=== PATIENT | female | born 1985 | race Hispanic/Latino ===

== ENCOUNTER 2016-12-28 15:36 | Emergency (ER) | payer MEDICAID ==
[2016-12-28 15:36] VITALS: BMI 26.1
[2016-12-28 15:41] VITALS: BP 117/66; PULSE 74; RESP 16; TEMP 98.7; O2SAT 100
--- NOTE | 2016-12-28 16:32 | ED PDOC ---
HPI: Abdomen Time Seen by Provider: 12/28/16 15:48 Chief Complaint (Nursing): Abdominal Pain Chief Complaint (Provider): Abdominal Pain History Per: Patient History/Exam Limitations: no limitations Onset/Duration Of Symptoms: Days (2x) Severity: Moderate Location Of Pain/Discomfort: Epigastric Associated Symptoms: Back Pain. denies: Fever, Nausea, Vomiting, Diarrhea, Urinary Symptoms Additional Complaint(s): 31 year old female patient approximately 10x weeks presents to the ED with complaints of epigastric abdominal pain that radiates to her back that started 2x days ago. She denies having nausea, vomiting, diarrhea, urinary symptoms, and vaginal bleeding. PMD: Mark Urban MD Past Medical History Reviewed: Historical Data, Nursing Documentation, Vital Signs Vital Signs: Last Vital Signs Temp 98.7 F 12/28/16 15:38 Pulse 74 12/28/16 15:38 Resp 16 12/28/16 15:38 BP 117/66 12/28/16 15:38 Pulse Ox 100 12/28/16 16:38 - Medical History PMH: Depression Other PMH: hydrocephalus - Surgical History Other surgeries: ARCHITECT IN TRAINING shunt 2013 - Family History Family History: States: Unknown Family Hx - Social History Current smoker - smoking cessation education provided: No Alcohol: None Drugs: Denies - Immunization History Hx Tetanus Toxoid Vaccination: No Hx Influenza Vaccination: No Hx Pneumococcal Vaccination: No - Home Medications Home Medications: Ambulatory Orders Medication Instructions Recorded Acetaminophen [Tylenol] 650 mg PO Q4 #30 tab 09/08/15 Famotidine [Pepcid] 1 tab PO BID #14 tab 09/08/15 Ondansetron ODT [Zofran ODT] 4 mg PO Q8 #12 odt 09/08/15 Clindamycin [Cleocin] 300 mg PO TID #21 cap 10/03/15 Naproxen [Naprosyn] 1 tab PO BID PRN #60 tab 10/03/15 Famotidine [Pepcid] 20 mg PO Q12 #20 tab 12/28/16 - Allergies Allergies/Adverse Reactions: Allergies Allergy/AdvReac Type Severity Reaction Status Date / Time Penicillins Allergy RASH Verified 12/28/16 15:37 seafood Allergy RASH Uncoded 12/28/16 15:37 Review of Systems ROS Statement: Except As Marked, All Systems Reviewed And Found Negative Constitutional: Negative for: Fever Gastrointestinal: Positive for: Abdominal Pain (epigastric abdominal pain). Negative for: Nausea, Vomiting, Diarrhea Genitourinary Female: Negative for: Dysuria, Hematuria, Vaginal Bleeding Physical Exam - Reviewed Nursing Documentation Reviewed: Yes Vital Signs Reviewed: Yes - Physical Exam Appears: Positive for: Well, Non-toxic, No Acute Distress Head Exam: Positive for: ATRAUMATIC, NORMOCEPHALIC Skin: Positive for: Normal Color, Warm, Dry Cardiovascular/Chest: Positive for: Regular Rate, Rhythm Respiratory: Positive for: Normal Breath Sounds. Negative for: Respiratory Distress Gastrointestinal/Abdominal: Positive for: Soft, Tenderness (mild epigastric tenderness, lower abdominal tenderness) Back: Positive for: Normal Inspection. Negative for: L CVA Tenderness, R CVA Tenderness Neurologic/Psych: Positive for: Alert, Oriented (3x) - Laboratory Results Result Diagrams: 12/28/16 17:05 12/28/16 17:05 - ECG O2 Sat by Pulse Oximetry: 100 (RA) Pulse Ox Interpretation: Normal Medical Decision Making Medical Decision Makin:48 Initial impression: 31 year old female 10x weeks with epigastric pain. Initial plan: * beta HCG quantitative * CMP * udip * CBC * US transvaginal * reevaluation Scribe Attestation: Documented by Rochelle Krause, acting as a scribe for Reinier Bowers MD. Provider Scribe Attestation: All medical record entries made by the Scribe were at my direction and personally dictated by me. I have reviewed the chart and agree that the record accurately reflects my personal performance of the history, physical exam, medical decision making, and the department course for this patient. I have also personally directed, reviewed, and agree with the discharge instructions and disposition. Disposition - Clinical Impression Clinical Impression: Gastritis - Patient ED Disposition Is Patient to be Admitted: No Counseled Patient/Family Regarding: Studies Performed, Diagnosis, Need For Followup, Rx Given - Disposition [facility] Disposition: Routine/Home Disposition Time: 18:58 Condition: FAIR Prescriptions: Famotidine [Pepcid] 20 mg PO Q12 #20 tab Instructions: Gastritis (ED)
[2016-12-28 17:13] LABS: BASO % 0.4 % (0.0-2.0); EOS % 0.7 % (0.0-4.0); HEMATOCRIT 35.9 % (34.0-47.0); LYMPH # 1.7 K/uL (1.0-4.3); LYMPH % 27.7 % (20.0-40.0); MEAN CELL VOLUME 89.9 fl (81.0-99.0); MEAN CORPUSCULAR HEMOGLOBIN 29.9 pg (27.0-31.0); MEAN CORPUSCULAR HGB CONC 33.3 g/dL (33.0-37.0); MEAN PLATELET VOLUME 8.1 fl (7.2-11.7); MONO # 0.7 K/uL (0.0-0.8); MONO % 11.1 % (0.0-10.0); NEUT # 3.7 K/uL (1.8-7.0); NEUT % 60.1 % (50.0-75.0); RED CELL DISTRIBUTION WIDTH 13.8 % (11.5-14.5); WHITE BLOOD COUNT 6.1 K/uL (4.8-10.8)
--- NOTE | 2016-12-28 17:20 | US ---
PROCEDURE: HISTORY: abd pain 10 weeks preg COMPARISON: TECHNIQUE: FINDINGS: The uterus measures 11.4 x 6.7 x 7.8 centimeters. There is intrauterine fetus with a crown-rump length of 3.2 centimeters corresponding to 10 weeks gestation. heart motion is identified at 171 beats per minute. The right ovary is not identified. The left ovary is unremarkable. IMPRESSION: Single live intrauterine fetus with a mean gestational age of 10 weeks and 1 day based on the crown-rump length. Recommend anatomic survey in the 2nd trimester.
[2016-12-28 17:28] LABS: ALB/GLOB RATIO 1.2 (1.0-2.1); ALKALINE PHOSPHATASE 47 U/L (38-126); ALT/SGPT 25 U/L (9-52); AST/SGOT 15 U/L (14-36); BILIRUBIN,TOTAL 0.2 mg/dl (0.2-1.3); BLOOD UREA NITROGEN 8 mg/dl (7-17); CALCIUM 9.2 mg/dL (8.4-10.2); CARBON DIOXIDE 21 mmol/L (22-30); CHLORIDE 106 mmol/L (98-107); GFR AFRICAN-AMERICAN > 60; GLUCOSE,RANDOM 68 mg/dL (65-105); POTASSIUM 3.8 MMOL/L (3.6-5.0); SODIUM 138 mmol/l (132-148); TOTAL PROTEIN 7.2 G/DL (6.3-8.2)
== END 2016-12-28 19:15 | disposition home or self-care (01) ==
LOC: H.ER 15:36
DX: R10.13 Epigastric pain (principal); O26.891 Other specified pregnancy related conditions, first trimester; Z3A.10 10 weeks gestation of pregnancy; F32.9 Major depressive disorder, single episode, unspecified; K29.70 Gastritis, unspecified, without bleeding; Z88.0 Allergy status to penicillin

== ENCOUNTER 2017-03-05 12:31 | Emergency (ER) | payer MEDICAID ==
[2017-03-05 12:31] VITALS: BMI 26.1
[2017-03-05 12:34] VITALS: BP 108/64; PULSE 88; RESP 18; TEMP 99; O2SAT 100
--- NOTE | 2017-03-05 13:29 | ED PDOC ---
HPI: General Adult Time Seen by Provider: 03/05/17 12:46 Chief Complaint (Nursing): Cough, Cold, Congestion Chief Complaint (Provider): Cough History Per: Patient History/Exam Limitations: no limitations Onset/Duration Of Symptoms: Days (x 1 week) Current Symptoms Are (Timing): Still Present Additional Complaint(s): Buzz is a 31 y/o female who states for the past week having a dry cough associated with sore throat. Patient states she is currently 4 months . LMP was October 19. Today she experienced chest pain while coughing, which resolved after coughing was done. Denies fever, hemoptysis, shortness of breath , leg pain, abdominal pain, pelvic pain, and vaginal bleeding. PMD: Unknown Past Medical History Reviewed: Historical Data, Nursing Documentation, Vital Signs Vital Signs: Last Vital Signs Temp 99 F 03/05/17 12:32 Pulse 88 03/05/17 12:32 Resp 18 03/05/17 12:32 BP 108/64 03/05/17 12:32 Pulse Ox 100 03/05/17 14:33 - Medical History PMH: Depression - Family History Family History: States: Unknown Family Hx - Immunization History Hx Tetanus Toxoid Vaccination: No Hx Influenza Vaccination: No Hx Pneumococcal Vaccination: No - Home Medications Home Medications: Ambulatory Orders Medication Instructions Recorded Acetaminophen [Tylenol] 650 mg PO Q4 #30 tab 09/08/15 Famotidine [Pepcid] 1 tab PO BID #14 tab 09/08/15 Ondansetron ODT [Zofran ODT] 4 mg PO Q8 #12 odt 09/08/15 Clindamycin [Cleocin] 300 mg PO TID #21 cap 10/03/15 Naproxen [Naprosyn] 1 tab PO BID PRN #60 tab 10/03/15 Famotidine [Pepcid] 20 mg PO Q12 #20 tab 12/28/16 - Allergies Allergies/Adverse Reactions: Allergies Allergy/AdvReac Type Severity Reaction Status Date / Time Penicillins Allergy RASH Verified 12/28/16 15:37 seafood Allergy RASH Uncoded 12/28/16 15:37 Review of Systems ROS Statement: Except As Marked, All Systems Reviewed And Found Negative Constitutional: Negative for: Fever ENT: Positive for: Throat Pain Cardiovascular: Positive for: Chest Pain (while coughing) Respiratory: Positive for: Cough (dry). Negative for: Shortness of Breath, Hemoptysis Gastrointestinal: Negative for: Abdominal Pain Genitourinary Female: Negative for: Vaginal Bleeding, Pelvic Pain Musculoskeletal: Negative for: Leg Pain Physical Exam - Reviewed Nursing Documentation Reviewed: Yes Vital Signs Reviewed: Yes - Physical Exam Appears: Positive for: Well, Non-toxic, No Acute Distress Head Exam: Positive for: ATRAUMATIC, NORMAL INSPECTION, NORMOCEPHALIC Skin: Positive for: Normal Color, Warm, Dry Eye Exam: Positive for: EOMI, Normal appearance, PERRL ENT: Positive for: Pharyngeal Erythema Neck: Positive for: Normal, Painless ROM, Supple Cardiovascular/Chest: Positive for: Regular Rate, Rhythm. Negative for: Murmur Respiratory: Positive for: Normal Breath Sounds (lungs clear bilaterally). Negative for: Respiratory Distress Gastrointestinal/Abdominal: Positive for: Normal Exam, Soft. Negative for: Tenderness Back: Positive for: Normal Inspection. Negative for: Vertebral Tenderness Extremity: Positive for: Normal ROM, Capillary Refill (< 2 sec). Negative for: Pedal Edema, Deformity Neurologic/Psych: Positive for: Alert, Oriented. Negative for: Motor/Sensory Deficits - ECG O2 Sat by Pulse Oximetry: 100 (RA) Pulse Ox Interpretation: Normal - Progress ED Course And Treament: Rapid strep: negative Medical Decision Making Medical Decision Making: Time: 13:20 Initial Plan: --Pending rapid strep test and throat culture --Group A Beta Strep antigen negative Time: 14:32 Clinical Impression: URI Upon provider evaluation patient is medically stable, and requires no further treatment in the ED at this time. Patient will be discharged home with instructions to stay hydrated and take Tylenol PRN. Counseling was provided and all questions were answered regarding diagnosis and need for follow up with OBGYN in 2 days. There is agreement to discharge plan. Return if symptoms persist or worsen. Scribe Attestation: Documented by Margie Moi, acting as a scribe for Ankit Castañeda PA-C. Provider Scribe Attestation: All medical record entries made by the Scribe were at my direction and personally dictated by me. I have reviewed the chart and agree that the record accurately reflects my personal performance of the history, physical exam, medical decision making, and the department course for this patient. I have also personally directed, reviewed, and agree with the discharge instructions and disposition. Disposition - Clinical Impression Clinical Impression: URI (upper respiratory infection) - Patient ED Disposition Is Patient to be Admitted: No Counseled Patient/Family Regarding: Diagnosis, Need For Followup - Disposition Referrals: Mark Urban MD [Primary Care Provider] - Disposition: Routine/Home Disposition Time: 14:32 Condition: STABLE Additional Instructions: Do frequent warm salt water gargles. Take Tylenol at home for pain or fever as needed. Follow up with your OBGYN in 2 days for further evaluation. Instructions: Upper Respiratory Infection (ED) Forms: [facility] (Chinese) Print Language: MONTENEGR[place]
== END 2017-03-05 14:57 | disposition home or self-care (01) ==
LOC: H.ER 12:31
DX: J06.9 Acute upper respiratory infection, unspecified (principal); F32.9 Major depressive disorder, single episode, unspecified; Z88.0 Allergy status to penicillin

== ENCOUNTER 2017-07-18 06:04 | Inpatient (IN) | payer MEDICAID ==
[2017-07-18 08:10] VITALS: BMI 37.4
[2017-07-18 09:03] LABS: HEMATOCRIT 34.4 % (34.0-47.0); MEAN CELL VOLUME 88.1 fl (81.0-99.0); MEAN CORPUSCULAR HEMOGLOBIN 29.2 pg (27.0-31.0); MEAN CORPUSCULAR HGB CONC 33.1 g/dL (33.0-37.0); RED CELL DISTRIBUTION WIDTH 16.3 % (11.5-14.5)
[2017-07-18] MEDS ORDERED: Fentanyl/Bupivacaine HCl 250 ML EPI ONE (09:07)
[2017-07-18] MEDS ORDERED: Oxytocin 30 UNITS in Sodium Chloride 0.9% 500 ML IV ONE (09:09)
[2017-07-18] MEDS ORDERED: Lidocaine 1% Inj (20ml) ONE (09:21)
--- NOTE | 2017-07-18 09:27 | CP.PCM.PN ---
Subjective - Date & Time of Evaluation Date of Evaluation: 07/18/17 Time of Evaluation: 09:25 - Subjective Subjective: Fentanyl/Bupivicaine was taken out to do epidural and bag was spiked but patient delivered before I was able to do epidural within 5 minutes of seeing patient and labs still pending. Full bag was wasted in Pyxis. Objective - Medications Medications: Current Medications Oxytocin 30 units/ Sodium (Chloride) 503 mls @ 999 mls/hr IV .Q31M ONE PRN Reason: Protocol Stop: 07/18/17 09:39 Oxytocin (Pitocin 20 Units In Lr) 1,000 mls @ 125 mls/hr IV .Q8H FLORES PRN Reason: Protocol - Labs Labs: 07/18/17 08:59
[2017-07-18] MEDS ORDERED: Oxycodone/Acetaminophen 5/325 mg Tab PO PRN (09:28)
--- NOTE | 2017-07-18 09:34 | OBDS ---
DELIVERY PERSONNEL Delivery Doctor: Tristen Alexandra MD Director Of Managed Services: Sabina Lux Resident: Rene Pacheco MATERNAL INFORMATION Delivery Anesthesia: Local Medications in Delivery: Pitocin 30 units in 500 ml saline Estimated Blood Loss (ml): 150 Placenta Cultured: No Maternal Complications: None Provider Comments: Pt progressed to complete and pushed to deliver a viable female through th in meconium-stained fluid at 09:14 am. Apgars 9 and 9. Wt 2900 gms, 6#6.3. Infant placed on mother 's abdomen. Cord blood collected. Placenta delivered spontaenously intact w/ a 3vc at 09:16 am. 1 % lidocaine injected into vagina. Small first degree tear repaired w/ 3-0v w/ 2 interrupted stitches . Rectum intact. Pt and baby tolerated the procedure well. EBL 150 mL LABOR SUMMARY EDC: 07/26/2017 00:00 No. Babies in Womb: 1 LABOR INFORMATION Onset of Labor: 07/18/2017 00:00 Complete Dilatation: 07/18/2017 08:30 Group B Beta Strep: Negative Steroids Given: None MEMBRANES Membranes Rupture Method: Spontaneous Rupture of Membranes: 07/18/2017 08:30 Amniotic Fluid Color: Light Meconium Amniotic Fluid Amount: Moderate Amniotic Fluid Odor: None STAGES OF LABOR Stage 1 hrs: 8 Stage 1 min: 30
[2017-07-18] MEDS ORDERED: Benzocaine/Menthol SPRAY TOP PRN (19:33)
[2017-07-19 05:52] LABS: HEMATOCRIT 33.9 % (34.0-47.0); MEAN CELL VOLUME 88.7 fl (81.0-99.0); MEAN CORPUSCULAR HEMOGLOBIN 28.8 pg (27.0-31.0); MEAN CORPUSCULAR HGB CONC 32.4 g/dL (33.0-37.0); RED CELL DISTRIBUTION WIDTH 16.3 % (11.5-14.5); WHITE BLOOD COUNT 9.1 K/uL (4.8-10.8)
--- NOTE | 2017-07-19 15:40 | OBHP ---
Datetime: 07/18/2017 08:15 IP Admit Plan: Admit to unit; Initiate labor protocol Admit Comment, IP Provider: 31 y/o F at 38.6 weeks GA based on LMP 10/19/16, c/w first bindu medina , KAMILA 07/26/17. Pt presented to [facility] c/o lower pelvic pain and blood tinged mucus discharge sin ce 1 am this morning. Denies any ctx at home but in [facility] she reports to have ctx. Denies LOF. Has +FM . Pt is GBS neg. Pt's PNC chart is available and reviewed. Denies headache, blurry vision or dizzines s. PNC: [facility], Dr. Joel Hodges, Last visit: 07/17/17 PNL: GBS neg, HIV neg, RPR neg, HbsAg neg, rubella immune, gc/c neg, A+, ab neg, ppd neg. past obhx: x2 (2001 and 2008), no complications( had 2 w/ V-P shunt in place). Past gynhx: denies hx STI. Pap neg on 12/25/16. Pmhx: hx hydrocephalus (s/p V-P shunt since age 10, last shunt change in 2011), obesity Pshx: V-P shunt social hx: denies smoking, ETOH or recreational drug use family hx: mother: asthma, DMII, HTN. medications: PNV allergies: penicillin: rash, Shellfish: anaphylaxis Assessment: 31 yo IUP @ 38.6 weeks GA, pelvic pain and ctx. Plan: - Change in cevix: from 3 cm dialtion to 4 cm. - Pt entering active phase of labor. - Will admit to L_D. - Initiate labor protocol. Case discussed with Dr Allen, OB rag production worker. Tara PGY-1. OB Hospitalist on-call...With PGY1 I saw and examined this patient. Agree with note MIGDALIA signed out to next hospitalist Membranes, Provider: Intact Comments, ACOG Physical Exam: Cervical change appreciated from 7 am. IP Hx Assessment: The History has been Reviewed and is Current EGA AdmitDate IP: 38.6 IP Chief Complaint: Other NICHD Variability Prov Fetus A: Moderate 6-25bpm FHR Category Provider Fetus A: Category I Dilatation, Provider: 4 Effacement, Provider: 50 Station, Provider: -2 Datetime: 07/18/2017 06:55 IP Adm Impression: Term, intrauterine IP Chief Complaint Other: pelvic pressure and pain IP Adm Impression Other: latent phase of labor Pelvic Type - PN: Adequate Extremities - PN: Normal Abdomen - PN: Normal Back - PN: Normal Lungs - PN: Normal Heart - PN: Normal Thyroid - PN: Normal Neurologic - PN: Normal HEENT - PN: Normal General - PN: Normal Presentation-Admit: Vertex FHR - Baseline A Provider: 130 NICHD Accel Fetus A IP Provider: [id number] NICHD Decel Fetus A IP Provider: None Genitourinary Exam: Normal DTRs - PN: Normal
--- NOTE | 2017-07-20 08:49 | OBPPN ---
Datetime: 07/20/2017 06:19 PP Pain Prov: Within normal limits PP Nausea Prov: Denies PP Flatus Prov: Yes PP BM Prov: No PP Heart Prov: Normal PP Lungs Prov: Normal PP Abdomen/Uterus Prov: Normal PP Lochia Prov: Normal PP Vulva/Perineum Prov: Normal PP CVA Tenderness Prov: Normal PP Extremities Prov: Normal PP Impression Prov: Normal progression PP Plan Prov: Discharge PP Progress Note Prov: PPD #2 31 y/o now seen and examined at bedside this morning. No overnight events noted. Reports mil d pelvic pain and it's controlled with pain medications. Voiding freely w/ no blood noted. Reports pa ssing gas but no BM yet. Tolerating PO. Ambulating well w/o dizziness. Lochia is similar to menses vo lume. Denies nausea, vomiting, fever, chills, chest pain or calf pain. Physical Exam: General: A_O, resting comfortably in bed, NAD HEENT: oral mucosa moist. Lungs: CTA B/L, no wheezing, rhonchi or rales CVS: RRR, S1, S2 ABD: ND, +BS, firm fundus @ umbilical level. Soft, appropriate TTP. EXT: no edema,no calf tenderness. Neuro/psych: AAOX3. Assessment: 31 y/o now doing well on PPD 2 Plan: Discharge to home today PNV 1 PO qdaily Ibuprofen 600 mg 1 tab po q6h prn for moderate/severe pain Feosol 325 mg PO bid Senokot 8.6mg 1-2 tabs po qhs. Encourage . Ambulation with caution,nothing per vaginal, no heavy lifting. Go to ER if excessive bleeding or experiencing fever, increased perineal or abdominal pain, breast problems or leg pain and swelling. Follow up at your clinic in 4-6 weeks. Sultan Stern, PGY1 OB [facility]-call...pt seen on rounds this AM by me. Agree with note MAHNDO Vital Signs Provider PP: Reviewed; Within Normal Limits
--- NOTE | 2017-07-20 08:49 | OBDCSUM ---
Datetime: 07/20/2017 06:21 Discharged to, Provider: Home Follow up at, Provider: [facility] Disch Instr Activity: Normal activity Disch Instr Diet: Regular Discharge Instructions, Provider: Routine instructions given Discharge Diagnosis, Provider: Term Delivered Follow up in weeks, Provider: in 4-6 weeks Disch Referrals: None Contraception discussed, Prov: Yes Disch Activity Restrictions: No lifting; No sexual activity; Nothing in vagina - [place], tampon s, douche Discharge Comment, Provider: Take Ibuprofen 600 mg 1 table every 6 hours as needed for pain. Take th food. Take Feosol 325 mg two times daily. Take vitamin daily. Take Senokot 8.6mg 1-2 tabs at night as needed for constipation. Please follow up with your doctor in 4-6 weeks. [facility]...pt seen on rounds this AM by me. Agree with note MAHNDO Contraception after Delivery: Control Pill/Patch
[2017-07-20 21:42] VITALS: BP 130/77; PULSE 101; RESP 20; TEMP 98.1; O2SAT 98
== END 2017-07-20 15:00 | disposition home or self-care (01) | DRG 373 ==
LOC: H.EROB2 06:04 → H.EROB 06:04 → H.L&D 08:10 → H.EROB2 08:10 → H.OB/GYN 11:30
PROVIDERS: ADMIT Obstetrics & Gynecology; ATTEND Obstetrics & Gynecology
PROC: 10E0XZZ Delivery of Products of Conception, External Approach (ICD-10-PCS; principal; 2017-07-18)
PROC: 4A1HXCZ Monitoring of Products of Conception, Cardiac Rate, External Approach (ICD-10-PCS; 2017-07-18)
PROC: 0HQ9XZZ Repair Perineum Skin, External Approach (ICD-10-PCS; 2017-07-18)
DX: O77.0 Labor and delivery complicated by meconium in amniotic fluid (principal); O70.0 First degree perineal laceration during delivery; Z37.0 Single live birth; Z3A.38 38 weeks gestation of pregnancy; Z82.49 Family history of ischemic heart disease and other diseases of the circulatory system; Z83.3 Family history of diabetes mellitus

== ENCOUNTER 2017-11-13 23:24 | Emergency (ER) | payer MEDICAID ==
[2017-11-13 23:24] VITALS: BMI 37.4
[2017-11-13 23:39] VITALS: RESP 16
--- NOTE | 2017-11-14 01:00 | ED PDOC ---
HPI: CCC, URI, Sore Throat Time Seen by Provider: 11/13/17 23:35 Chief Complaint (Nursing): ENT Problem Chief Complaint (Provider): throat pain History Per: Patient History/Exam Limitations: no limitations Onset/Duration Of Symptoms: Days (4) Current Symptoms Are (Timing): Still Present Location Of Pain: Throat Additional Complaint(s): 32 y/o female brought in by EMS for evaluation of sore throat x 4 days. Denies fever, ear pain, cough, congestion, difficulty speaking/swallowing, chest pain, shortness of breath. Past Medical History Reviewed: Historical Data, Nursing Documentation, Vital Signs Vital Signs: Last Vital Signs Temp 98.4 F 11/13/17 23:35 Pulse 90 11/13/17 23:35 Resp 16 11/13/17 23:35 BP 129/81 11/13/17 23:35 Pulse Ox 98 11/14/17 02:00 - Medical History PMH: No Chronic Diseases Denies: Depression, Diabetes, HTN - Surgical History Other surgeries: [employer] shunt - Family History Family History: States: Unknown Family Hx - Living Arrangements Living Arrangements: With Family - Immunization History Hx Tetanus Toxoid Vaccination: No Hx Influenza Vaccination: No Hx Pneumococcal Vaccination: No - Home Medications Home Medications: Ambulatory Orders Medication Instructions Recorded Ferrous Sulfate [Feosol] 325 mg PO BID #60 tab 07/20/17 Ibuprofen [Motrin Tab] 600 mg PO Q6 PRN #30 tab 07/20/17 Sennosides [Senokot] 8.6 mg PO QPM PRN #60 tablet 07/20/17 - Allergies Allergies/Adverse Reactions: Allergies Allergy/AdvReac Type Severity Reaction Status Date / Time Penicillins Allergy RASH Verified 04/26/17 09:03 seafood Allergy RASH Uncoded 07/18/17 17:27 Review of Systems ROS Statement: Except As Marked, All Systems Reviewed And Found Negative ENT: Positive for: Throat Pain Physical Exam - Reviewed Nursing Documentation Reviewed: Yes Vital Signs Reviewed: Yes - Physical Exam Appears: Positive for: Well, Non-toxic, No Acute Distress Head Exam: Positive for: ATRAUMATIC, NORMAL INSPECTION, NORMOCEPHALIC Skin: Positive for: Normal Color Eye Exam: Positive for: Normal appearance ENT: Positive for: Pharyngeal Erythema Neck: Positive for: Normal, Painless ROM Cardiovascular/Chest: Positive for: Regular Rate, Rhythm Respiratory: Positive for: Normal Breath Sounds Gastrointestinal/Abdominal: Positive for: Normal Exam Back: Positive for: Normal Inspection Extremity: Positive for: Normal ROM Lymphatic: Positive for: Normal Exam Neurologic/Psych: Positive for: Alert, Oriented - ECG O2 Sat by Pulse Oximetry: 98 - Progress ED Course And Treament: ibuprofen PO, rapid strep Patient educated on findings, discharged with instructions to follow up PMD 2-3 days. Advised ibuprofen/Tylenol PRN pain. Fluids. Return precautions given. Disposition - Clinical Impression Clinical Impression: Viral pharyngitis - Patient ED Disposition Is Patient to be Admitted: No Counseled Patient/Family Regarding: Studies Performed, Diagnosis, Need For Followup - Disposition Referrals: Mark Urban MD [Primary Care Provider] - Disposition: Routine/Home Disposition Time: 02:00 Condition: IMPROVED Instructions: Viral Pharyngitis Forms: [facility] (Urdu)
[2017-11-14 02:34] VITALS: BP 121/72; PULSE 71; TEMP 98.2; O2SAT 95
== END 2017-11-14 02:39 | disposition home or self-care (01) ==
LOC: H.ER 23:24
DX: J02.9 Acute pharyngitis, unspecified (principal); Z88.0 Allergy status to penicillin; Z98.2 Presence of cerebrospinal fluid drainage device

== ENCOUNTER 2017-12-28 15:33 | Emergency (ER) | payer MEDICAID ==
[2017-12-28 15:33] VITALS: BMI 37.4
[2017-12-28 15:39] VITALS: TEMP 98.1
[2017-12-28 15:44] VITALS: BP 128/58; PULSE 65; RESP 16; O2SAT 100
[2017-12-28] MEDS ORDERED: Albuterol 0.083% Inhal Sol (2.5 mg/3 mL) UD INH STA (15:48)
[2017-12-28] MEDS ORDERED: Albuterol-Ipratrop 3 mg / 0.5 (3 ml) UD ONE (15:49)
[2017-12-28] MEDS ORDERED: Albuterol 0.083% Inhal Sol (2.5 mg/3 mL) UD ONE (15:52)
--- NOTE | 2017-12-28 15:53 | ED PDOC ---
History of Present Illness History of Present Illness: 32 year old female presents to the emergency department complaining of a sore throat and cough onset one month. She denies any allergies, fever, chills, or nasal discharge. LNMP: this month, so denies PMD: Mark Urban HPI: Influenza Time Seen by Provider: 12/28/17 15:40 Chief Complaint: Cough, Cold, Congestion Chief Complaint (Provider): Cough, Sore throat History Per: Patient Exam Limitations: no limitations Onset/Duration Of Symptoms: Days (x1 month) Past Medical History Reviewed: Historical Data, Nursing Documentation, Vital Signs Vital Signs: Last Vital Signs Temp 98.1 F 12/28/17 15:37 Pulse 65 12/28/17 15:44 Resp 16 12/28/17 15:44 BP 128/58 L 12/28/17 15:44 Pulse Ox 100 12/28/17 15:44 - Medical History PMH: No Chronic Diseases Denies: Depression, Diabetes, HTN - Surgical History Surgical History: No Surg Hx - Family History Family History: States: Unknown Family Hx - Social History Current smoker - smoking cessation education provided: No - Immunization History Hx Tetanus Toxoid Vaccination: No Hx Influenza Vaccination: No Hx Pneumococcal Vaccination: No - Home Medications Home Medications: Ambulatory Orders Medication Instructions Recorded Ferrous Sulfate [Feosol] 325 mg PO BID #60 tab 07/20/17 Ibuprofen [Motrin Tab] 600 mg PO Q6 PRN #30 tab 07/20/17 Sennosides [Senokot] 8.6 mg PO QPM PRN #60 tablet 07/20/17 Albuterol HFA [Ventolin HFA 90 2 puff IH [id number] PRN #1 inhaler 12/28/17 mcg/actuation (8 g)] Cetirizine HCl [Zyrtec] 10 mg PO DAILY #15 tab.rapdis 12/28/17 - Allergies Allergies/Adverse Reactions: Allergies Allergy/AdvReac Type Severity Reaction Status Date / Time Penicillins Allergy RASH Verified 12/28/17 15:37 seafood Allergy RASH Uncoded 07/18/17 17:27 Review of Systems ROS Statement: Except As Marked, All Systems Reviewed And Found Negative Constitutional: Negative for: Fever, Chills ENT: Positive for: Throat Pain. Negative for: Nose Discharge Respiratory: Positive for: Cough Physical Exam - Reviewed Nursing Documentation Reviewed: Yes Vital Signs Reviewed: Yes - Physical Exam Appears: Positive for: Non-toxic, No Acute Distress Head Exam: Positive for: ATRAUMATIC, NORMOCEPHALIC Skin: Positive for: Normal Color, Warm, Dry Eye Exam: Positive for: Normal appearance ENT: Negative for: Pharyngeal Erythema Neck: Positive for: Normal, Painless ROM, Supple Cardiovascular/Chest: Positive for: Regular Rate, Rhythm. Negative for: Murmur Respiratory: Negative for: Normal Breath Sounds (diminished breath sounds) Gastrointestinal/Abdominal: Positive for: Normal Exam, Soft. Negative for: Tenderness Back: Positive for: Normal Inspection Extremity: Positive for: Normal ROM Neurologic/Psych: Positive for: Alert, Oriented Medical Decision Making Medical Decision Making: Time: 15:47 Initial Impression: cough, cold, sore throat Initial Plan: --Albuterol 0.083% 2.5mg INH --Motrin 600mg PO --Peak flow pre/post tx Scribe Attestation: Documented by Lona Duque, acting as a scribe for Ruth Glover PA-C Provider Scribe Attestation: All medical record entries made by the Scribe were at my direction and personally dictated by me. I have reviewed the chart and agree that the record accurately reflects my personal performance of the history, physical exam, medical decision making, and the department course for this patient. I have also personally directed, reviewed, and agree with the discharge instructions and disposition. - ECG O2 Sat by Pulse Oximetry: 100 (RA) Pulse Ox Interpretation: Normal Disposition - Clinical Impression Clinical Impression: Cough - Patient ED Disposition Is Patient to be Admitted: No - Disposition Disposition: Routine/Home Disposition Time: 16:23 Condition: FAIR Prescriptions: Albuterol HFA [Ventolin HFA 90 mcg/actuation (8 g)] 2 puff IH [id number] PRN #1 inhaler PRN Reason: Cough Cetirizine HCl [Zyrtec] 10 mg PO DAILY #15 tab.rapdis Instructions: Cough, Adult (DC) Forms: [facility] (Danish)
== END 2017-12-28 17:06 | disposition home or self-care (01) ==
LOC: H.ER 15:33
DX: R05 Cough (principal); J02.9 Acute pharyngitis, unspecified; Z88.0 Allergy status to penicillin